=== PATIENT | male | born 1955 | race Caucasian/White ===

== ENCOUNTER 2017-01-05 06:15 | Emergency (ER) | payer SELFPAY ==
[~2017-01-05] VITALS: Ht 162.6 cm; Wt 81.6 kg
--- NOTE | 2017-01-05 06:15 | NUR ---
PT DANIELE BLS. TAKEN TO BED 5
[2017-01-05 06:20] VITALS: BP 169/96
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
--- NOTE | 2017-01-05 06:31 | NUR ---
Dr. Fair evaluating patient at bedside.
--- NOTE | 2017-01-05 06:56 | NUR ---
X-Ray at bedside.
--- NOTE | 2017-01-05 07:09 | NUR ---
Pt report given to KENAN TRUJILLO. Transfer of care at this time.
--- NOTE | 2017-01-05 07:30 | NUR ---
Patient appears to be resting comfortably in bed. Respirations even and unlabored.WILL CONTINUE TO NONITOR.
--- NOTE | 2017-01-05 07:39 | NUR ---
Dr. Martinez evaluating patient at bedside.
--- NOTE | 2017-01-05 08:00 | NUR ---
EMT BRANDT AT BEDSIDE
[2017-01-05 08:17] VITALS: BP 132/97
--- NOTE | 2017-01-05 08:17 | NUR ---
Patient discharged with v/s stable. Written and verbal after care instructions given and explained. Patient alert, oriented and verbalized understanding of instructions. Ambulatory with CRUTCHES & steady gait. All questions addressed prior to discharge. ID band removed. Patient advised to follow up with PMD. Rx of DOXYCYCLINE & IBUPROFEN given. Patient educated on indication of medication including possible reaction and side effects. Opportunity to ask questions provided and answered.
== END 2017-01-05 08:17 | disposition home or self-care (01) ==
LOC: MED 06:15
DX: S82.891A Other fracture of right lower leg, initial encounter for closed fracture (principal); F17.200 Nicotine dependence, unspecified, uncomplicated; V09.9XXA Pedestrian injured in unspecified transport accident, initial encounter; Y93.89 Activity, other specified; Y92.89 Other specified places as the place of occurrence of the external cause; Y99.8 Other external cause status
CPT/HCPCS: 73562; 73610; 73630; 81002; 99284; Q0092

== ENCOUNTER 2019-01-09 16:39 | Emergency (ER) | payer SELFPAY ==
[~2019-01-09] VITALS: Ht 167.6 cm; Wt 59.0 kg
--- NOTE | 2019-01-09 16:41 | NUR ---
PT BIBA BLS TO BED 3
[2019-01-09 16:48] VITALS: BP 151/70
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
--- NOTE | 2019-01-09 16:58 | NUR ---
PT BEING EVALUATED BY DR KUMAR
[2019-01-09] MEDS ORDERED: KETOROLAC 60 MG/2 ML VIAL IM ONE (17:25)
--- NOTE | 2019-01-09 19:14 | NUR ---
PT ENDORSED TO [employer] NURSE
[2019-01-09 19:25] VITALS: BP 124/64
--- NOTE | 2019-01-09 19:25 | NUR ---
Patient given written and verbal discharge instructions and verbalizes understanding. Given copies of tests performed during visit. Patient is awake, alert and oriented. Pt provided with weather appropriate clothing, meal offered prior to d/c. Ambulatory with steady gait. Refuses offer of [facility] placement. Given list of available shelters in surrounding areas.
== END 2019-01-09 19:25 | disposition home or self-care (01) ==
LOC: MED 16:39
DX: S09.90XA Unspecified injury of head, initial encounter (principal); M25.522 Pain in left elbow; Z59.0 Homelessness; V78.1XXA Passenger on bus injured in noncollision transport accident in nontraffic accident, initial encounter; Y93.89 Activity, other specified; Y92.811 Bus as the place of occurrence of the external cause; Y99.8 Other external cause status
CPT/HCPCS: 70450; 71046; 72040; 73060; 96372; 99284; J1885